=== PATIENT | female | born 1960 | race Caucasian/White ===

== ENCOUNTER 2019-09-12 10:56 | Emergency (ER) | payer MEDICARE, MEDICAID ==
[~2019-09-12] VITALS: Ht 157.5 cm; Wt 127.2 kg
[2019-09-12 11:00] VITALS: BP 176/93
[2019-09-12] MEDS ORDERED: ALBUTEROL/IPRATROPIUM 2.5MG/0.5MG, 3 ML NPPB ONE (12:30)
[2019-09-12] MEDS ORDERED: ALBUTEROL/IPRATROPIUM 2.5MG/0.5MG, 3 ML ONE (12:33)
[2019-09-12 12:56] LABS: BASOPHILS # (AUTO) 0.05 x10^3/uL (0-0.1); BASOPHILS % (AUTO) 1 % (0-1); EOSINOPHILS # (AUTO) 0.28 x10^3/uL (0-0.4); EOSINOPHILS % (AUTO) 4 % (1-7); LYMPHOCYTES # (AUTO) 1.54 x10^3/uL (1-3.4); LYMPHOCYTES % (AUTO) 20 % (22-44); MD NO; MEAN CORPUSCULAR HEMOGLOBIN 28.2 pg (27.0-34.8); MEAN CORPUSCULAR HGB CONC 32.6 g/dL (32.4-35.8); MEAN CORPUSCULAR VOLUME 86.4 fL (80-100); MEAN PLATELET VOLUME 9.2 fL (7.4-10.4); MONOCYTES % (AUTO) 7 % (2-9); NEUTROPHILS # (AUTO) 5.37 x10^3/uL (1.8-6.8); NEUTROPHILS % (AUTO) 69 % (42-75); PLATELET COUNT 256 x10^3/uL (130-400); RED BLOOD COUNT 4.25 x10^6/uL (3.82-5.3); RED CELL DISTRIBUTION WIDTH 16.6 % (9.6-15.2)
[2019-09-12 13:04] LABS: ANION GAP 6 mmol/L (5-15); CALCIUM 8.7 mg/dL (8.5-10.1); CHLORIDE 111 mmol/L (98-107); CREATININE 1.08 mg/dL (0.55-1.02)
[2019-09-12 13:09] LABS: TROPONIN I < 0.015 ng/mL (0.000-0.045)
== END 2019-09-12 14:43 | disposition home or self-care (01) ==
LOC: ED 12:02
DX: R06.00 Dyspnea, unspecified (principal); R51 Headache; I10 Essential (primary) hypertension; J44.9 Chronic obstructive pulmonary disease, unspecified
CPT/HCPCS: 36415; 71046; 80048; 82040; 84484; 85025; 93005; 94640; 99285

== ENCOUNTER 2020-02-11 08:55 | Outpatient (CLI) | payer MEDICARE | END 2020-02-11 23:59 | disposition home or self-care (01) | LOC: CFH 08:55 | PROVIDERS: ATTEND Radiology Diagnostic Radiology | DX: Z12.31 Encounter for screening mammogram for malignant neoplasm of breast (principal); Z12.2 Encounter for screening for malignant neoplasm of respiratory organs; N64.89 Other specified disorders of breast; Z87.891 Personal history of nicotine dependence | CPT/HCPCS: 77067; G0297 ==

== ENCOUNTER 2020-03-07 12:37 | Outpatient (CLI) | payer MEDICARE | END 2020-03-07 23:59 | disposition home or self-care (01) | LOC: CARD 12:37 | PROVIDERS: ATTEND Internal Medicine | DX: J44.9 Chronic obstructive pulmonary disease, unspecified (principal) | CPT/HCPCS: 94060; 94726; 94729 ==

== ENCOUNTER 2020-07-08 14:08 | Outpatient (CLI) | payer MEDICARE | END 2020-07-08 23:59 | disposition home or self-care (01) | LOC: CFH 14:08 | DX: C50.919 Malignant neoplasm of unspecified site of unspecified female breast (principal); R92.8 Other abnormal and inconclusive findings on diagnostic imaging of breast | CPT/HCPCS: 77061; 77063; 77065; G0279 ==